=== PATIENT | female | born 1995 | race Caucasian/White ===

== ENCOUNTER 2020-05-10 20:40 | Emergency (ER) | payer MEDICAID ==
[~2020-05-10] VITALS: Ht 172.7 cm; Wt 80.9 kg
--- NOTE | 2020-05-10 20:59 | NUR ---
PT IN GOWN IN [facility] ATTACHED TO VS MONITORS. DR WATTS AT BS WITH PT AT THIS TIME. PT EDUCATED ON ER PROCESS AND POC AND VERBALIZES UNDERSTANDING. CALL LIGHT IS WITHIN REACH.
[2020-05-10] MEDS ORDERED: OXYcodone/APAP 5/325MG TABLET ONE (21:13)
--- NOTE | 2020-05-10 21:18 | NUR ---
PT MEDICATED PER MAR FOR PAIN.
[2020-05-10] MEDS ORDERED: LIDOCAINE-MPF 1%, 5ML ONE (21:27)
[2020-05-10] MEDS ORDERED: OXYcodone/APAP 5/325MG TABLET PO ONE (21:30)
[2020-05-10] MEDS ORDERED: LIDOCAINE-MPF 2% ,5ML SQ ONE (21:30)
--- NOTE | 2020-05-10 21:33 | NUR ---
LESTER AT BS WITH PT FOR I/D
--- NOTE | 2020-05-10 21:55 | NUR ---
PT D/C WITH D/C SUMMARY AND SCRIPTS. ALL QUESTIONS ANSWERED. PT AMBULATES TO REGISTRATION DESK WITH STEADY GAIT FOR D/C HOME. PT DENIES ANY OTHER NEEDS PERTAININ G TO THIS VISIT.
[2020-05-10 21:56] VITALS: BP 114/77
--- NOTE | 2020-05-10 22:06 | NUR ---
PT FORGOT D/C SUMMARY AND SCRIPTS IN ROOM. VM LEFT FOR PT TO INDICATE PAPERWORK WOULD BE LEFT WITH [facility] [employer].
== END 2020-05-11 08:07 | disposition home or self-care (01) ==
LOC: ED 21:11
DX: N76.4 Abscess of vulva (principal); R10.33 Periumbilical pain
CPT/HCPCS: 56405; 99284